=== PATIENT | female | born 1935 | race Caucasian/White ===

== ENCOUNTER 2017-02-22 10:05 | Emergency (ER) | payer OTHER, MEDICARE ==
[~2017-02-22] VITALS: Ht 149.9 cm; Wt 56.2 kg
--- NOTE | 2017-02-22 11:02 | ED EYE COMPLAINT ---
History of Present Illness General Chief Complaint: Eye Problems Stated Complaint: L EYE REDDNESS Source: patient Exam Limitations: no limitations Vital Signs & Intake/Output Vital Signs & Intake/Output Vital Signs Date Time Temp Pulse Resp B/P B/P Pulse O2 O2 Flow FiO2 Mean Ox Delivery Rate 02/22 1103 76 166/90 02/22 1011 97.5 65 20 200/100 99 Room Air Allergies Coded Allergies: anastrozole (From ARIMIDEX) (RASH 02/22/17) exemestane (From AROMASIN) (RASH 02/22/17) lisinopril (COUGHING 02/22/17) Triage Note: PT TO ED C/O LEFT EYE REDNESS SINCE TUESDAY. WORSE YESTERDAY AND TODAY. DENIES BLURRED VISION. C/O LEFT EYE TEARING. Triage Nurses Notes Reviewed? yes Onset: Abrupt Duration: day(s): (4), constant, continues in ED Timing: recent history No Modifying Factors: none Left Eye Associated Symptoms: redness HPI: 81-year-old female comes into emergency room with redness to her left eye is been going on since Tuesday. She denies any trauma she can think of. She reports that she has some mild irritation but denies any pain currently. Denies any vision loss. Patient comes in due to the severe amount of redness for further evaluation. She lives in [place] primarily and is up here visiting for a month. Denies any vomiting or headache. Denies any chest pain shortness of breath. Patient is a history of high blood pressure. Blood pressure elevated in triage. (BROOKE BUSCH) Past History Travel History Traveled to [place] past 21 day No Medical History Any Pertinent Medical History? see below for history EENT: cataracts Cardiovascular: hypertension Cancer(s): breast cancer, skin cancer Surgical History Surgical History: non-contributory Psychosocial History What is your primary language [place]iboutian Tobacco Use: Never used ETOH Use: denies use Illicit Drug Use: denies illicit drug use Family History Hx Contributory? No (BROOKE BUSCH) Review of Systems Review of Systems Constitutional: Reports: no symptoms. Eyes: Reports: see HPI. Ear: Reports: no symptoms. Nose: Reports: no symptoms. Mouth: Reports: no symptoms. Throat: Reports: no symptoms. Respiratory: Reports: no symptoms. Cardiovascular: Reports: no symptoms. GI: Reports: no symptoms. Genitourinary: Reports: no symptoms. Musculoskeletal: Reports: no symptoms. Skin: Reports: no symptoms. Neurological/Psychological: Reports: no symptoms. Hematologic/Endocrine: Reports: no symptoms. Immunologic/Allergic: Reports: no symptoms. All Other Systems: Reviewed and Negative (BROOKE BUSCH) Physical Exam General Appearance: well developed/nourished, mild distress General Inspection: left eye redness Conjunctiva/Sclera: subconjunctival hemorrhag, erythema/blood surrounding sclera , cornea and pupil reactive to light and accommodation, Cornea: normal inspection, examined w/fluorescein, no corneal abrasion appreciated, normal funduscopic exam EOM: intact Pupil: normal accommodation, normal pupil, PERRL, normal funduscopic exam General Inspection: normal inspection Conjunctiva/Sclera: normal inspection Cornea: normal inspection EOM: intact Pupil: normal accommodation, normal pupil, PERRL Anterior Chamber: normal inspection Physical Exam Head: atraumatic Nose: normal inspection Mouth/Throat: normal mouth inspection Neck: normal inspection Cardiovascular/Respiratory: no respiratory distress Neurologic/Psych: awake, alert, oriented x 3, normal mood/affect Skin: intact, normal color, warm/dry (BROOKE BUSCH) Progress Differential Diagnosis: corneal abrasion, corneal foreign body, conjunctivitis, detached retina, glaucoma, globe rupture, retinal art./v. occlusion, subconjunctival hemorrhage, retinal artery hemorrhage, Plan of Care: 02/22/2017 11:31:19 AM Most consistent with subconjunctival hemorrhage. Patient referred to [facility] for follow-up. No pain. No suspicion for glaucoma. No vision loss. No suspicion for retinal detachment or retinal artery hemorrhage. (BROOKE BUSCH) Departure Departure Disposition: HOME OR SELF CARE Condition: Stable Clinical Impression Primary Impression: Subconjunctival hemorrhage of left eye Referrals: ZAK HERNANDEZ,ANITA Grier UNKNOWN (PCP/Family) Additional Instructions: Follow-up with tree cutter in [place] doctor Saldana (information below) for follow-up with tree cutter Dr. Ross provided on discharge instructions. He can use artificial tears at home. Return immediately if any vision loss, increased pain, or any other concerns. [address], [place], [place] [id number] Please go over all results of today's visit with your primary care doctor. Contact your primary care doctor to let them know you were here in the emergency room. There may be nonspecific findings which may not be related to your visit today here in the emergency room but may require further evaluation and chronic monitoring by your primary care doctor. If you had a laceration today the chance of foreign body always remains. You should follow-up with your primary care doctor for recheck in 3-5 days for a wound check. If you had an x-ray done there is a chance that a fracture could have been missed on initial read and you should follow-up with your primary care doctor for repeat x-rays if symptoms persist. If your blood pressure was elevated here in the emergency room please have rechecked by her primary care doctor within the next 48 hours by your primary care doctor. If you were prescribed a narcotic here in the emergency room or any type of controlled substances you're not allowed to drive while taking this medication or operate any type of heavy machinery. Narcotics can make you feel lightheaded dizziness nausea and can cause constipation. You may need to warehouse order picker a stool softener. Thank you for choosing [facility] emergency room. Please return to the emergency room immediately if you have any other concerns worsening of symptoms. Departure Forms: Customer Survey General Discharge Information (BROOKE BUSCH) PA/[employer] Co-Sign Statement Statement: ED Attending supervision documentation- [] I saw and evaluated the patient. I have also reviewed all the pertinent lab results and diagnostic results. I agree with the findings and the plan of care as documented in the PA's/[employer]'s documentation. [X] I have reviewed the ED Record and agree with the PA's/[employer]'s documentation. [] Additions or exceptions (if any) to the PAs/[employer]'s note and plan are summarized below: [] (SINGH HERNANDEZ,LEROY King)
[2017-02-22 11:03] VITALS: BP 166/90
== END 2017-02-22 11:37 ==
LOC: ERH 10:05
DX: H11.32 Conjunctival hemorrhage, left eye (principal)